=== PATIENT | female | born 1995 | race African-American/Black ===

== ENCOUNTER 2017-09-08 14:37 | Inpatient (IN) | payer MEDICAID ==
[~2017-09-08] VITALS: Ht 162.6 cm; Wt 84.6 kg
[2017-09-08 14:55] VITALS: Ht 162.6 cm; Wt 84.6 kg
[2017-09-08] MEDS ORDERED: PREN-32 PO (15:00)
[2017-09-08 15:55] VITALS: BP 118/69; PULSE 93; RESP 20
[2017-09-08 16:59] LABS: BASOPHILS % 0.2 % (0.0-2.0); EOSINOPHILS # 0.2 10^3/ul (0.0-0.5); HEMATOCRIT 38.3 % (37.0-47.0); HEMOGLOBIN 12.9 g/dl (12.0-16.0); LYMPHOCYTES # 1.7 10^3/ul (0.8-2.9); LYMPHOCYTES % 26.6 % (15.0-51.0); MEAN CORPUSCULAR HEMOGLOBIN 29.4 pg (29.0-33.0); MEAN CORPUSCULAR HGB CONC 33.7 g/dl (32.0-37.0); MEAN CORPUSCULAR VOLUME 87.2 fl (82.0-101.0); MEAN PLATELET VOLUME 9.9 fl (7.4-10.4); MONOCYTE # 0.8 10^3/ul (0.3-0.9); MONOCYTES % 11.9 % (0.0-11.0); NEUTROPHIL # 3.7 10^3/ul (1.6-7.5); NEUTROPHILS % 57.7 % (39.0-77.0); PLATELET COUNT 278 10^3/UL (140-415); RED BLOOD COUNT 4.39 10^6/ul (4.20-5.40); RED CELL DISTRIBUTION WIDTH 13.2 % (11.5-14.5); WHITE BLOOD COUNT 6.3 10^3/ul (4.8-10.8)
[2017-09-08] MEDS ORDERED: IBUPROFEN 600 MG TAB PO PRN (17:00)
[2017-09-08] MEDS: LACTATED RINGER'S 1,000 ML IV SCH ×2 (17:00→21:55)
[2017-09-08] MEDS ORDERED: LIDOCAINE 1% (MPF) 30 ML INJ INJ PRN (17:00)
[2017-09-08] MEDS ORDERED: CARBOPROST 250 MCG INJ IM PRN (17:00)
[2017-09-08] MEDS ORDERED: BUTORPHANOL 2 MG INJ IV PRN (17:00)
[2017-09-08] MEDS ORDERED: DINOPROSTONE 10 MG VAG SUPP VAG ONE (17:00)
[2017-09-08] MEDS ORDERED: METHYLERGONOVINE 0.2 MG INJ IM PRN (17:00)
[2017-09-08] MEDS ORDERED: OXYTOCIN 30 UNITS/LR 500 ML IV PRN (17:00)
[2017-09-08] MEDS ORDERED: MISOPROSTOL 200 MCG TAB PR PRN (17:00)
[2017-09-08] MEDS ORDERED: OXYTOCIN 30 UNITS/LR 500 ML IV SCH ×2 (17:00)
[2017-09-08 17:02] LABS: INR 0.92; PROTIME 12.4 Sec (12.2-14.2)
[2017-09-08 17:03] LABS: PARTIAL THROMBOPLASTIN TIME 27.1 Sec (25.0-35.0)
--- NOTE | 2017-09-08 17:35 | RADRPT ---
PROCEDURE: US OB. CLINICAL INDICATION: Size and dates , IUGR TECHNIQUE: Multiple sonographic images of the pelvis and gravid uterus were obtained. The images were reviewed on a PACS workstation. COMPARISON: No prior studies are available for comparison. FINDINGS: There is a single viable intrauterine gestation. Cardiac activity is present with 129 beats per min sun'aq. There is a vertex presentation. The placenta is left lateral. There is no evidence for an abruption or placenta previa. Measurements were made in order to determine age. The results are as follows: BPD =9.2 cm HC =33.3 cm AC =33.4 cm FL =7.6 cm Estimated gestational age of approximately 38 weeks and 0 days based on ultrasound measurements. Clinical age: 39 weeks and 5 days. The estimated date of delivery is 09/22/17, based on ultrasound measurements. The EFW = 3305 g, 28.1%, based on LMP age. RPTAT: AA IMPRESSION: Single viable intrauterine gestation of approximately 38 weeks and 0 days based on ultrasound measu rements. .Alex Rojo MD, Date Time Electronically viewed and signed by .Alex Rojo MD, MD on 09/08/2017 17:35 .S/
[2017-09-08] MEDS ORDERED: LACTATED RINGER'S 1,000 ML IV PRN (18:00)
[2017-09-09] MEDS: LACTATED RINGER'S 1,000 ML IV SCH ×4 (05:42→18:50)
[2017-09-09] MEDS ORDERED: FENTAnyl 2MCG/ML-ROPIV 0.2% 100 ML ONE (09:03)
[2017-09-09] MEDS ORDERED: OXYTOCIN 30 UNITS/LR 500 ML IV SCH (11:10)
[2017-09-09] MEDS ORDERED: TRIMETHOBENZAMIDE 100 MG/ML VIAL IM PRN (12:00)
[2017-09-09] MEDS ORDERED: NALOXONE (0.4 MG/ML) INJ IV PRN (12:00)
[2017-09-09] MEDS ORDERED: ONDANSETRON 4 MG INJ IV PRN (12:00)
[2017-09-09] MEDS ORDERED: DIPHENHYDRAMINE 50 MG INJ IV PRN (12:00)
[2017-09-09] MEDS: FENTAnyl 2MCG/ML-ROPIV 0.2% 100 ML BAG EPI SCH ×3 (15:54→23:45)
[2017-09-10] MEDS: LACTATED RINGER'S 1,000 ML IV SCH ×2 (01:45→07:12)
[2017-09-10] MEDS ORDERED: MINERAL OIL LIGHT 10 ML VIAL TOP ONE (03:00)
[2017-09-10] MEDS ORDERED: AMPICILLIN 2 GM/NS (PMX) 100 ML IVPB ONE (03:30)
[2017-09-10] MEDS ORDERED: GENTAMICIN 120 MG/NS (PMX) 100 ML IVPB ONE (03:30)
[2017-09-10] MEDS ORDERED: ACETAMINOPHEN 325 MG TAB PO ONE (03:30)
[2017-09-10 03:47] LABS: Arterial Cord Blood pCO2 51.3 mmHG (25-50); CBA Base Excess -7.2 mmol/L; CBA Oxygen Sat 40.5 mmHG; CBA Total Hemglobin 15.4 g/dl; Cord Blood Arterial pO2 19.3 mmHG (15.0-45.0); Fraction OxyHgb Cord Arterial 39.4 %; MODE ROOM AIR; Sample Type CBA
[2017-09-10 03:48] LABS: CBV Base Excess -6.3 mmol/L; CBV COHb 1.2 %; CBV Oxygen Sat 67.8 mmHG; CBV Total Hemglobin 15.6 g/dl; Cord Blood Venous pO2 28.6 mmHG (15.0-45.0); Fraction OxyHgb Cord Venous 66.2 %; MODE ROOM AIR; MetHgb Cord Venous 1.1 %; Sample Type CBV
[2017-09-10] MEDS: LACTATED RINGER'S 1,000 ML IV* SCH ×3 (06:17→21:37)
[2017-09-10 06:20] VITALS: BP 121/60; PULSE 91; RESP 20
[2017-09-10] MEDS ORDERED: CARBOPROST 250 MCG INJ IM PRN (06:30)
[2017-09-10] MEDS ORDERED: LANOLIN 7 GM TUBE TOP PRN (06:30)
[2017-09-10] MEDS ORDERED: MISOPROSTOL 200 MCG TAB PR PRN (06:30)
[2017-09-10] MEDS ORDERED: WITCH HAZEL/GLYCERIN PAD PR PRN ×2 (06:30)
[2017-09-10] MEDS ORDERED: METHYLERGONOVINE 0.2 MG INJ IM PRN (06:30)
[2017-09-10] MEDS ORDERED: ONDANSETRON 4 MG INJ IV PRN (06:30)
[2017-09-10] MEDS ORDERED: ZOLPIDEM 5 MG TAB PO PRN (06:30)
[2017-09-10] MEDS ORDERED: METHYLERGONOVINE 0.2 MG TAB PO PRN (06:30)
[2017-09-10] MEDS ORDERED: DIPHENHYDRAMINE 25 MG CAP PO PRN (06:30)
[2017-09-10] MEDS ORDERED: OXYTOCIN 30 UNITS/LR 500 ML IV PRN (06:30)
[2017-09-10] MEDS ORDERED: BENZOCAINE 20% 56 ML SPRAY TOP PRN ×2 (06:30→07:00)
[2017-09-10 08:00] VITALS: BP 112/53; PULSE 97; RESP 20
[2017-09-10] MEDS: SENNA/DOCUSATE NA (8.6MG/50MG) TAB PO SCH ×2 (08:12→21:33)
--- NOTE | 2017-09-10 09:22 | PN ---
Date/Time of Note Date/Time of Note DATE: 09/10/17 TIME: 09:12 OB Subjective Subjective Subjective September 10, 2017 Post vaginal delivery 2ed degree perineal laceration and vaginal bleeding Vaginal packing in place . On examination of this patient she is doing fairly well she had still slight vaginal bleeding and no blood actually came seeping through the vaginal packing Vaginal packing was gently removed she does not have excessive bleeding at this time. We will check her H&H later in the day Otherwise she is doing Well Afebrile Chest Clear Breasts are soft , Nipples are intact Abdomen is soft Fundus is firm No evidence of infection No calf tenderness No ankle edema Laboratory Tests Test 09/09/17 20:13 09/10/17 03:36 09/10/17 03:37 Hepatitis B Surface Antigen NEGATIVE Blood Gas Specimen Source CBV CBA Arterial Blood Date Drawn 09/10/2017 3:40:02 AM 09/10/2017 3:30:31 AM Arterial Blood Gas Puncture Site CORD CORD Jorge Test N/A N/A Cord Blood Carboxyhemoglobin 1.2% 0.6% Cord Venous Blood pH 7.270 Cord Venous Blood PCO2 46.0mmHG Cord Venous Blood PO2 28.6mmHG Cord Venous Blood HCO3 20.6mmol/L Cord Venous Blood Base Excess -6.3mmol/L POC Cord Venous Blood Oxygen Sat 67.8mmHG Cord Venous Blood Hemoglobin 15.6g/dl Cord Venous Blood Oxyhemoglobin 66.2% Cord Venous Blood Methemoglobin 1.1% Blood Gas A-a O2 Differential 66.0mmHg 69.0mmHg Blood Gas Temperature 37.0C 37.0C Blood Gas Modality ROOM AIR ROOM AIR FiO2 21.0% 21.0% Blood Gas Critical Value Read Back JAMEY TRIPLETT RN Blood Gas Notified Whom [place] Blood Gas Notified Time 09/10/2017 3:48:48 AM 09/10/2017 3:46:58 AM Cord Arterial Blood pH 7.225 Cord Arterial Blood PCO2 51.3mmHG Cord Arterial Blood PO2 19.3mmHG Cord Arterial Blood HCO3 20.8mmol/L Cord Arterial Blood Base Excess -7.2mmol/L POC Cord Arterial Blood O2 Sat 40.5mmHG Cord Arterial Blood Hemoglobin 15.4g/dl Cord Arterial Blood Oxyhemoglobin 39.4% Cord Arterial Blood Methemoglobin 2.0% Current Medications Medications (Trade) Dose Ordered Sig/Kamini Route PRN Reason Start Time Stop Time Status Last Admin Dose Admin Lactated Ringer's (Lr) 1,000 ml @ 125 mls/hr Q8H IV 09/08/17 16:44 09/10/17 07:12 Butorphanol Tartrate (Stadol) 2 mg Q2H PRN IV PAIN 09/08/17 17:00 09/10/17 06:21 DC Lidocaine 30 ml 30 ml ONCE PRN INJ EPISIOTOMY/TEARING 09/08/17 17:00 09/10/17 06:21 DC Oxytocin/Lactated Ringer's 500 ml @ 125 mls/hr ONCE -MAY REPEAT X1 IV 09/08/17 17:00 09/10/17 06:21 DC 09/10/17 03:44 Oxytocin/Lactated Ringer's 500 ml @ 125 mls/hr ONCE IV 09/08/17 17:00 09/10/17 06:21 DC Ibuprofen 600 mg 600 mg ONCE PRN PO Mild Pain (Pain Score 1-3) 09/08/17 17:00 09/10/17 05:02 Lactated Ringer's 1,000 ml @ 2,000 mls/hr Q30M PRN IV PRE-EPIDURAL BOLUS 09/08/17 18:00 09/10/17 06:21 DC Oxytocin/Lactated Ringer's 500 ml @ 0 mls/hr ONCE PRN IV For Hemorrhage Management 09/08/17 17:00 09/10/17 06:21 DC Methylergonovine Maleate (Methergine) 0.2 mg ONCE PRN IM VAGINAL BLEEDING 09/08/17 17:00 Carboprost Tromethamine (Hemabate) 250 mcg ONCE PRN IM VAGINAL BLEEDING 09/08/17 17:00 09/10/17 06:21 DC Misoprostol (Cytotec) 1,000 mcg ONCE PRN [place] VAGINAL BLEEDING 09/08/17 17:00 Dinoprostone 10 mg 10 mg ONCE ONCE VAG 09/08/17 17:00 09/08/17 17:01 DC 09/08/17 21:18 Fentanyl/ Ropivacaine 100 ml @ ud STK-MED ONCE .ROUTE 09/09/17 09:03 09/09/17 09:04 DC Oxytocin/Lactated Ringer's 500 ml @ 0 mls/hr Q0M IV 09/09/17 11:10 09/10/17 06:21 DC 09/09/17 11:23 Naloxone HCl (Narcan) 0.1 mg Q2M PRN IV FOR RESP RATE 8 OR LESS 09/09/17 12:00 09/10/17 06:21 DC Diphenhydramine HCl (Benadryl) 25 mg Q6H PRN IV ITCHING 09/09/17 12:00 09/10/17 06:21 DC Ondansetron HCl (Zofran Inj) 4 mg Q6H PRN IV NAUSEA AND/OR VOMITING 09/09/17 12:00 09/10/17 11:59 Trimethobenzamide HCl (Tigan) 200 mg Q6H PRN IM NAUSEA AND/OR VOMITING 09/09/17 12:00 09/10/17 11:59 Fentanyl/ Ropivacaine 100 ml EPIDURAL INFUSION EPI 09/09/17 12:00 09/10/17 06:21 DC 09/09/17 23:45 Mineral Oil (Muri-Lube) ONCE ONCE TOP 09/10/17 03:00 09/10/17 03:01 DC 09/10/17 02:43 Acetaminophen 650 mg 650 mg ONCE ONCE PO 09/10/17 03:30 09/10/17 03:31 DC 09/10/17 03:48 Gentamicin Sulfate 100 ml @ 200 mls/hr ONCE ONCE IVPB 09/10/17 03:30 09/10/17 03:59 DC 09/10/17 05:02 Gentamicin Sulfate 50 ml @ 100 mls/hr Q8H IVPB 09/10/17 11:30 Ampicillin (Ampicillin 2 Gm/ NS (Pmx)) 100 ml @ 100 mls/hr ONCE ONCE IVPB 09/10/17 03:30 09/10/17 04:29 DC 09/10/17 03:52 Witch Rafia/ Glycerin (Tucks Pads) 1 pad PRN PRN [place] HEMORROID PAIN/ITCHING 09/10/17 06:30 09/10/17 08:11 Benzocaine 1 spray 1 spray PRN PRN TOP HEMORRHOID/EPISIOTMY PAIN 09/10/17 06:30 09/10/17 06:30 DC Lactated Ringer's 1,000 ml @ 125 mls/hr Q8H IV* 09/10/17 06:17 Clindamycin HCl/ Dextrose (Cleocin 900 Mg/ D5W (Pmx)) 50 ml @ 50 mls/hr Q8 IV 09/10/17 14:00 Methylergonovine Maleate (Methergine) 0.2 mg Q6H PRN PO VAGINAL BLEEDING 09/10/17 06:30 Ibuprofen (Motrin) 600 mg Q6 PO 09/10/17 12:00 Ondansetron HCl (Zofran Inj) 4 mg Q6H PRN IV NAUSEA AND/OR VOMITING 09/10/17 06:30 Diphenhydramine HCl (Benadryl) 25 mg Q6H PRN PO PRURITUS 09/10/17 06:30 Zolpidem Tartrate (Ambien) 5 mg QHS PRN PO INSOMNIA 09/10/17 06:30 Senna/Docusate Sodium (Senokot-S) 1 tab BID PO 09/10/17 09:00 09/10/17 08:12 Witch Rafia/ Glycerin (Tucks Pads) 1 pad BEDSIDE MEDICATION PRN [place] HEMORRHOID/EPISIOTMY PAIN 09/10/17 06:30 Lanolin (Zdz-Z-Djohon) 1 applic BEDSIDE MEDICATION PRN TOP BEDSIDE FOR LISA TO NIPPLES 09/10/17 06:30 09/10/17 08:12 Measles/Mumps/ Rubella Vaccine Live (Mmr Ii Vaccine) 0.5 ml ONCE ONCE SC* 09/12/17 09:00 09/12/17 09:01 Diphtheria/ Tetanus/Acell Pertussis (Adacel) 0.5 ml ONCE ONCE IM* 09/12/17 09:00 09/12/17 09:01 Varicella Virus Vaccine Live 1350 unit 1,350 unit ONCE ONCE SC* 09/12/17 09:00 09/12/17 09:01 Oxytocin/Lactated Ringer's 500 ml @ 0 mls/hr ONCE PRN IV For Hemorrhage Management 09/10/17 06:30 Methylergonovine Maleate (Methergine) 0.2 mg ONCE PRN IM VAGINAL BLEEDING 09/10/17 06:30 Carboprost Tromethamine (Hemabate) 250 mcg ONCE PRN IM VAGINAL BLEEDING 09/10/17 06:30 Misoprostol (Cytotec) 1,000 mcg ONCE PRN [place] VAGINAL BLEEDING 09/10/17 06:30 Benzocaine (Dermoplast [place]don) 1 spray PRN PRN TOP HEMORRHOID/EPISIOTMY PAIN 09/10/17 07:00 09/10/17 08:11 New born is doing well, Breast feeding RODERICK SUAREZ MD Sep 10, 2017 09:22
[2017-09-10] MEDS ORDERED: OXYCODONE/ACETAMINOPHEN (5/325) TAB PO PRN ×2 (10:00)
[2017-09-10 10:32] LABS: HEMATOCRIT 29.3 % (37.0-47.0); HEMOGLOBIN 9.6 g/dl (12.0-16.0)
[2017-09-10] MEDS: GENTAMICIN 80 MG/NS (PMX) 50 ML IVPB SCH ×2 (11:29→19:45)
[2017-09-10] MEDS: IBUPROFEN 600 MG TAB PO SCH ×2 (11:34→17:32)
[2017-09-10 12:10] VITALS: BP 113/55; RESP 18
[2017-09-10] MEDS ORDERED: INFLUENZA VIRUS VACCINE 0.5 ML SYG IM* ONE (12:30)
[2017-09-10] MEDS: CLINDAMYCIN 900 MG/D5W (PMX) 50 ML IV SCH ×2 (13:46→22:40)
[2017-09-10 15:54] VITALS: BP 122/74; PULSE 91; RESP 18
[2017-09-10 20:00] VITALS: BP 121/68; PULSE 89; RESP 19
--- NOTE | 2017-09-10 22:33 | NSTRPT ---
NST Information Datetime Report Generated by CPN: 09/10/2017 22:32 Datetime: 09/08/2017 13:55 NST Information EGA: 39.5 Datetime: 09/08/2017 13:38 Test Number: 1 Time on Monitor: 09/08/2017 13:57 Time off Monitor: 09/08/2017 14:19 NST Duration (Min): 22 Reason for NST: IUGR Test and Monitor Explained: Monitor Explained; Test Explained; Verbalized Understanding Pulse: 90 Resp: 18 SBP: 114 DBP: 67 Test Evaluation NST Interventions: Reposition Patient Patient States Movement: Present Contraction Frequency: x1, denies FHR Baseline : 130 Variability: Moderate 6-25bpm Accelerations: 15X15 Decelerations: None FHR Category: Category I NST Results: Reactive Comments: To u/s, TERE 15.6cm, cephalic 1415-Report to boubacar Atkinson recommendations from Perinatology for delivery due to IUGR, AC 4%. Order received to admit to [facility], Report called to Mariaelena CONCEPCION/Rodolfo. POC explained to pt. 1422-Pt to LOscar accompained by Lilibeth Harris Electronically Signed By E-Signature: with User ID: [id number]
[2017-09-11] MEDS: IBUPROFEN 600 MG TAB PO SCH ×3 (00:05→12:04)
[2017-09-11] MEDS: GENTAMICIN 80 MG/NS (PMX) 50 ML IVPB SCH (03:23)
[2017-09-11 03:35] VITALS: BP 105/69; PULSE 89; RESP 19
[2017-09-11] MEDS: CLINDAMYCIN 900 MG/D5W (PMX) 50 ML IV SCH (05:43)
[2017-09-11] MEDS: LACTATED RINGER'S 1,000 ML IV* SCH (06:14)
[2017-09-11 08:00] VITALS: BP 115/63; PULSE 87; RESP 20
--- NOTE | 2017-09-11 08:16 | HP ---
Date/Time of Note Date/Time of Note DATE: 09/11/17 TIME: 08:15 OB - History Hx of Present Free Text/Dictation term , induction for low TERE Care: Good Care Ultrasounds: Normal mid trimester US Obstetrical Complications: None Medical Complications: None Past Family/Social History * Past Medical, Surgical, Family and Obstetric Histories reviewed from chart. OB Admission Exam Vital Signs Vital Signs Vital Signs Date Time Temp Pulse Resp B/P Pulse Ox O2 Delivery O2 Flow Rate FiO2 09/11/17 03:35 98.0 89 19 105/69 Room Air Physical Exam HEENT: WNL Heart: Rhythm Normal Lungs: Clear, Equal Abdomen: WNL Extremities: Normal Reflexes: Normal Cervical Dilatation: 10cm Effacement: 100% Station: +3 Amniotic Fluid: Clear Heart Rate: 130's Accelerations: Accelerations Present Intensity: Moderate Last 72 hours Lab Results CBC & BMP 09/08/17 15:10 09/10/17 09:51 OB Assessment/Plan Reason for admission: induction of labor Plan: Induction EDUARDO SALINAS MD Sep 11, 2017 08:16
--- NOTE | 2017-09-11 08:17 | LDN ---
Date/Time of Note Date/Time of Note DATE: 09/11/17 TIME: 08:16 Delivery Summary NSD by Dr. Cardona Placenta Delivered: Spontaneously Meconium: none Episiotomy: No Estimated blood loss: 300 Sponge & Needle done & correct: Yes All needle counts correct: Yes Any foreign bodies felt in the: No Problems: EDUARDO SALINAS MD Sep 11, 2017 08:17
--- NOTE | 2017-09-11 08:18 | DS ---
Date/Time of Note Date/Time of Note DATE: 09/11/17 TIME: 08:17 Discharge Summary Admission/Discharge Info Admit Date/Time Sep 08, 2017 at 14:37 Discharge Date/Time Discharge Diagnosis term Patient Condition: Stable Hospital Course unremarkable Home Meds Reported Medications #103/Iron Fumarate/FA ( Tablet) 1 Each Tablet, 1 EACH PO, TAB 09/08/17 Primary Care Provider Care Physician No Primary Pending Labs Laboratory Tests Test 09/10/17 09:51 Hemoglobin 9.6g/dl (12.0-16.0) Hematocrit 29.3% (37.0-47.0) EDUARDO SALINAS MD Sep 11, 2017 08:18
--- NOTE | 2017-09-11 08:18 | PD.PPDC ---
[employer] Discharge Instruction Condition Patient Condition: Stable Diet Diet: Resume Regular Diet Activity/Restrictions Activity: Normal Activity May Shower Restrictions: No Exercising No Lifting No Driving No Sexual Activity Nothing in the Vagina No [place] No Tampons, douche Wound/Drain Care Instructions Wound/Drain Care Instructions: Wash with soap and water Keep clean and dry Follow-up Follow-up with Physician: 3, Week/Weeks Return to clinic for [employer] Instructions: Fever greater than 101 Chills Worsening abdominal pain Excessive Vaginal Bleeding More than 2 pads per hour Unable to tolerate diet OB Instructions: Breast Tenderness Depression Blurried Vision Headache Surgical Instructions: Incisional Drainage Incisional Redness EDUARDO SALINAS MD Sep 11, 2017 08:18
[2017-09-11] MEDS: SENNA/DOCUSATE NA (8.6MG/50MG) TAB PO SCH (09:30)
[2017-09-11 16:00] VITALS: BP 112/60; PULSE 65; RESP 20
[2017-09-12] MEDS ORDERED: DIPHTH/TET/ACEL PERTUSS (ADULT) 0.5 ML VIAL IM* ONE (09:00)
[2017-09-12] MEDS ORDERED: MEASLES,MUMPS,RUBELLA VACCINE INJ SC* ONE (09:00)
[2017-09-12] MEDS ORDERED: VARICELLA VACCINE LIVE/PF 1,350 UNIT/0.5 ML ML SC* ONE (09:00)
== END 2017-09-11 16:30 | disposition home or self-care (01) | DRG 775 ==
LOC: L-D 14:37 → PP1 09-10 06:03
PROVIDERS: ADMIT Obstetrics & Gynecology; ATTEND Obstetrics & Gynecology
PROC: 10E0XZZ Delivery of Products of Conception, External Approach (ICD-10-PCS; principal; 2017-09-11)
PROC: 3E0P3VZ Introduction of Hormone into Female Reproductive, Percutaneous Approach (ICD-10-PCS; 2017-09-11)
DX: O80 Encounter for full-term uncomplicated delivery (principal); Z37.0 Single live birth; Z3A.39 39 weeks gestation of pregnancy
CPT/HCPCS: 36415; 36600; 62319; 76816; 82803; 85014; 85018; 85025; 85610; 85730; 86592; 86900; 86901; 87340; 88307; 90686; 99464; J0290; J1580; J2590; J3010; J7120